=== PATIENT | female | born 1990 | race African-American/Black ===

== ENCOUNTER 2020-10-30 10:37 | Emergency (ER) | payer OTHER ==
[~2020-10-30] VITALS: Ht 165.1 cm; Wt 63.9 kg
[2020-10-30 10:38] VITALS: BP 120/61
[2020-10-30] MEDS ORDERED: NORE1TAB34 PO (11:02)
[2020-10-30] MEDS ORDERED: DERM1TAB2 PO (11:02)
[2020-10-30] MEDS ORDERED: VALA500T5 PO (11:02)
[2020-10-30] MEDS ORDERED: VITMTA PO (11:02)
--- OUTSIDE RECORDS SUMMARY | 2020-10-30 11:50 | CCD ---
Author Author [facility] Address Unknown Phone Unavailable Support Name Relationship Address Phone [facility] Next Of Kin [address] [place] [address] Unavailable REGINO [place] [address] Re-disclosure Warning The records that you are about to access may contain information from federally-assisted alcohol or drug abuse programs. If such information is present, then the following federally mandated warning applies: This information has been disclosed to you from records protected by federal confidentiality rules (42 CFR part 2). The federal rules prohibit you from making any further disclosure of this information unless further disclosure is expressly permitted by the written consent of the person to whom it pertains or as otherwise permitted by 42 CFR part 2. A general authorization for the release of medical or other information is NOT sufficient for this purpose. The Federal rules restrict any use of the information to criminally investigate or prosecute any alcohol or drug abuse patient.The records that you are about to access may contain highly sensitive health information, the redisclosure of which is protected by Article 27-F of the [facility] Public Health law. If you continue you may have access to information: Regarding HIV / AIDS; Provided by facilities licensed or operated by the [facility] Office of Mental Health; or Provided by the [facility] Office for People With Developmental Disabilities. If such information is present, then the following [facility] mandated warning applies: This information has been disclosed to you from confidential records which are protected by state law. State law prohibits you from making any further disclosure of this information without the specific written consent of the person to whom it pertains, or as otherwise permitted by law. Any unauthorized further disclosure in violation of state law may result in a fine or nursing home sentence or both. A general authorization for the release of medical or other information is NOT sufficient authorization for further disc losure. Insurance Providers Payer name Policy type / Coverage type Policy ID Covered green party ID Covered green party's relationship to wan Policy Wan Plan Information [facility] [employer] [id number]
--- NOTE | 2020-10-30 12:03 | REP ---
INDICATION: Coronavirus workup. COMPARISON: No comparison study. TECHNIQUE: Portable upright AP chest radiograph. FINDINGS: The lungs are well inflated and free of infiltrate. Pleural angles are sharp. Heart size is normal. Pulmonary vasculature is not increased. IMPRESSION: Negative portable chest x-ray.. <Electronically signed by Daniel Pelayo > 10/30/20 1157
[2020-10-30] MEDS ORDERED: AZIT-12 PO (12:23)
[2020-10-30] MEDS ORDERED: VENTAER INH (12:23)
== END 2020-10-30 12:39 | disposition home or self-care (01) ==
LOC: M ED 10:37
DX: J20.9 Acute bronchitis, unspecified (principal); R51.9 Headache, unspecified; Z20.822 Contact with and (suspected) exposure to COVID-19; J02.9 Acute pharyngitis, unspecified; J45.909 Unspecified asthma, uncomplicated; F41.9 Anxiety disorder, unspecified; K58.0 Irritable bowel syndrome with diarrhea; D25.9 Leiomyoma of uterus, unspecified
CPT/HCPCS: 71045; 87804; 99283; U0003

== ENCOUNTER 2023-07-11 17:50 | Emergency (ER) | payer OTHER ==
[~2023-07-11] VITALS: Ht 165.1 cm; Wt 66.6 kg
[~2023-07-11 17:50] MED LIST: AZIT-12 PO; DERM1TAB2 PO; NORE1TAB34 PO; VALA500T5 PO; VENTAER INH; VITMTA PO
[2023-07-11] MEDS ORDERED: ADVA115A INH (18:03)
[2023-07-11] MEDS ORDERED: NS 1,000 ML IV ONE (20:55)
[2023-07-11] MEDS ORDERED: KETOROLAC 30 MG/ML 1ML VIAL IV ONE (20:55)
[2023-07-11] MEDS ORDERED: ACETAMINOPHEN 500 MG TAB PO ONE (20:55)
[2023-07-11] MEDS ORDERED: METOCLOPRAMIDE INJ 10MG/2ML VIAL IV ONE (20:55)
[2023-07-11 21:21] LABS: RSV AMPLIFICATION NEGATIVE (NEGATIVE)
[2023-07-11 21:31] LABS: BASO % 0.4 % (0.0-1.0); EOS # 0.1 10^3/uL (0.0-0.5); EOS % 2.1 % (0.0-3.0); HEMATOCRIT 35.8 % (36.0-47.0); HEMOGLOBIN 11.7 g/dl (12.0-15.5); LYMPH # 1.9 10^3/uL (1.5-5.0); LYMPH % 40.3 % (24.0-44.0); MEAN CORPUSCULAR HEMOGLOBIN 28.1 pg (27.0-33.0); MEAN CORPUSCULAR HGB CONC 32.7 g/dl (32.0-36.5); MEAN CORPUSCULAR VOLUME 86.1 fl (80.0-96.0); MONO # 0.3 10^3/uL (0.0-0.8); MONO % 6.6 % (2.0-8.0); NEUTROPHILS # 2.4 10^3/uL (1.5-8.5); NEUTROPHILS % 50.4 % (36.0-66.0); PLATELET COUNT, AUTOMATED 252 10^3/uL (150-450); RED BLOOD COUNT 4.16 10^6/uL (4.00-5.40); WHITE BLOOD COUNT 4.7 10^3/uL (4.0-10.0)
[2023-07-11 21:57] LABS: BLOOD UREA NITROGEN 13 MG/DL (9-23); CALCIUM LEVEL 8.6 MG/DL (8.5-10.1); CARBON DIOXIDE LEVEL 28 MMOL/L (20-31); CHLORIDE LEVEL 104 MMOL/L (98-107); CREATININE FOR GFR 0.81 MG/DL (0.55-1.30); GLOMERULAR FILTRATION RATE > 60.0 (>60); GLUCOSE, FASTING 81 MG/DL (60-100); SODIUM LEVEL 138 MMOL/L (136-145)
[2023-07-11 22:50] VITALS: BP 114/55; TEMP 98.4; O2SAT 99
== END 2023-07-11 22:51 | disposition home or self-care (01) ==
LOC: M ED 18:50
DX: G43.909 Migraine, unspecified, not intractable, without status migrainosus (principal); J45.909 Unspecified asthma, uncomplicated; K21.9 Gastro-esophageal reflux disease without esophagitis; K58.9 Irritable bowel syndrome, unspecified; F10.10 Alcohol abuse, uncomplicated; Z91.018 Allergy to other foods; Z91.048 Other nonmedicinal substance allergy status; Z79.52 Long term (current) use of systemic steroids; Z79.899 Other long term (current) drug therapy
CPT/HCPCS: 80048; 84702; 85025; 87631; 96361; 96374; 99284; J1885; J2765